=== PATIENT | male | born 1985 | race African-American/Black ===

== ENCOUNTER 2022-10-19 10:29 | Inpatient (IN) | payer OTHER ==
[~2022-10-19] VITALS: Ht 182.9 cm; Wt 108.0 kg
[2022-10-19] MEDS ORDERED: MIRT-149 PO (10:49)
[2022-10-19 11:21] LABS: BASOPHILS % (AUTO) 1.1 % (0.0-2.0); EOSINOPHILS % (AUTO) 5.6 % (1.0-6.0); HEMATOCRIT 43.6 % (36-46); LYMPHOCYTES # (AUTO) 1.5 K/uL (1.0-4.8); LYMPHOCYTES % (AUTO) 35.5 % (22.0-44.0); MEAN CORPUSCULAR HEMOGLOBIN 29.7 pg (26.0-34.0); MEAN CORPUSCULAR VOLUME 93 fL (80-100); MONOCYTES # (AUTO) 0.4 K/uL (0.1-1.0); MONOCYTES % (AUTO) 10.4 % (2.0-9.0); NEUTROPHILS % (AUTO) 47.4 % (40.0-70.0); PLATELET COUNT (AUTO) 194 K/uL (150-450); RED CELL DISTRIBUTION WIDTH 13.1 % (11.5-14.5)
[2022-10-19 11:28] LABS: ANION GAP 6 mmol/L (8-16); CARBON DIOXIDE 32 mmol/L (22-29); CHLORIDE 104 mmol/L (98-107); CREATININE 1.18 mg/dL (0.60-1.30); GLUCOSE,RANDOM 99 mg/dL (70-110); POTASSIUM 4.5 mmol/L (3.5-5.1); SODIUM SERUM 142 mmol/L (136-145); UREA NITROGEN, BLOOD 13 mg/dL (7-18)
[2022-10-19 11:29] LABS: GLOMERULAR FILTR. RATE CALC 51 mL/min (>60)
[2022-10-19 11:37] LABS: ALANINE AMINOTRANSFERASE 30 U/L (12-78); ALBUMIN 4.2 g/dL (3.4-5.0); ALKALINE PHOSPHATASE 76 U/L (46-116); ASPARTATE AMINOTRANSFERASE 20 U/L (15-37); BILIRUBIN,TOTAL 0.5 mg/dL (0.1-1.0); TOTAL PROTEIN, SERUM 8.3 g/dL (6.4-8.2)
[2022-10-19 12:47] LABS: AMPHET/METH SCREEN,URINE NEGATIVE (NEGATIVE); BARBITURATE SCREEN, URINE NEGATIVE (NEGATIVE); BENZODIAZEPINES SCREEN,URINE NEGATIVE (NEGATIVE); CANNABINOID SCREEN,URINE NEGATIVE (NEGATIVE); COCAINE SCREEN,URINE NEGATIVE (NEGATIVE); METHADONE SCREEN, URINE NEGATIVE (NEGATIVE); OPIATE SCREEN,URINE NEGATIVE (NEGATIVE)
[2022-10-19 12:51] LABS: PHENCYCLIDINE SCREEN,URINE NEGATIVE (NEGATIVE)
[2022-10-19] MEDS ORDERED: HALOPERIDOL 5 MG TABLET PO PRN (14:00)
[2022-10-19] MEDS ORDERED: LORazepam 2 MG TABLET PO PRN (14:00)
[2022-10-19] MEDS ORDERED: ZOLPIDEM TARTRATE 10 MG TABLET PO PRN (14:00)
[2022-10-19 14:59] LABS: COVID AG,FIA SOURCE NASAL SWAB
[2022-10-19] MEDS ORDERED: ONDANSETRON HCL 4 MG TABLET PO PRN (19:30)
[2022-10-19] MEDS ORDERED: CloNIDine HCL 0.1 MG TABLET PO PRN (19:30)
[2022-10-19] MEDS ORDERED: MAG HYDROX/AL HYDROX/SIMETH ES 30 ML SUSPENSION UDCUP PO PRN (19:30)
[2022-10-19] MEDS ORDERED: GuaiFENesin/D-METHORPHAN [SUGAR-FREE] 200-20MG/10 ML SYRUP UDCUP PO PRN (19:30)
[2022-10-19] MEDS ORDERED: IBUPROFEN 400 MG TABLET PO PRN (19:30)
[2022-10-19] MEDS ORDERED: ACETAMINOPHEN 325 MG TABLET PO PRN (19:30)
[2022-10-19] MEDS ORDERED: PETROLATUM,WHITE 28 GM JELLY TP PRN (19:30)
[2022-10-19] MEDS ORDERED: MAGNESIUM HYDROXIDE SUSPENSION 30 ML UDCUP PO PRN (19:30)
[2022-10-19] MEDS ORDERED: LOPERAMIDE HCL 2 MG CAPSULE PO PRN (19:30)
[2022-10-19] MEDS ORDERED: DOCUSATE SODIUM 100 MG CAPSULE PO PRN (19:30)
[2022-10-19] MEDS ORDERED: ALBUTEROL SULFATE HFA 90 MCG/PUFF 8 GM INHALER IH PRN (19:30)
[2022-10-19] MEDS ORDERED: NICOTINE 14 MG/24 HOUR PATCH TD PRN (19:30)
[2022-10-19 20:27] VITALS: BP 120/75
[2022-10-19] MEDS ORDERED: INFLUENZA VIRUS VACCINE QVS 2022-23 (6MO+)/PF 60 MCG/0.5 ML SYRINGE IM. ONE (22:30)
[2022-10-20 08:08] VITALS: BP 108/66
[2022-10-20 20:29] VITALS: BP 106/74
[2022-10-20] MEDS: MIRTAZAPINE 30 MG TABLET PO SCH (20:53)
[2022-10-21 08:17] VITALS: BP 114/68
[2022-10-21] MEDS: MIRTAZAPINE 30 MG TABLET PO SCH (20:58)
[2022-10-21 23:30] VITALS: BP 128/72
[2022-10-22 08:30] VITALS: BP 119/63
[2022-10-22] MEDS: MIRTAZAPINE 30 MG TABLET PO SCH (20:13)
[2022-10-22 20:15] VITALS: BP 101/75
[2022-10-23 08:12] VITALS: BP 119/71
[2022-10-23] MEDS: MIRTAZAPINE 30 MG TABLET PO SCH (20:03)
[2022-10-23 20:06] VITALS: BP 121/70
[2022-10-24 08:29] VITALS: BP 113/66
[2022-10-24 21:15] VITALS: BP 106/58
[2022-10-24] MEDS: MIRTAZAPINE 30 MG TABLET PO SCH (21:20)
[2022-10-25 08:27] LABS: GLUCOMETER DEV NAME(LOC) POC.BV
[2022-10-25 09:00] VITALS: BP 122/72
[2022-10-25 20:03] VITALS: BP 110/69
[2022-10-25] MEDS: MIRTAZAPINE 30 MG TABLET PO SCH (21:01)
[2022-10-26 09:12] VITALS: BP 121/73
[2022-10-26 20:00] VITALS: BP 113/69
[2022-10-26] MEDS: MIRTAZAPINE 30 MG TABLET PO SCH (20:39)
[2022-10-27 09:48] VITALS: BP 131/68
[2022-10-27] MEDS ORDERED: MIRT-149 PO (18:52)
[2022-10-27] MEDS: MIRTAZAPINE 30 MG TABLET PO SCH (20:47)
[2022-10-27 22:02] VITALS: BP 105/66
== END 2022-10-28 09:00 | disposition home or self-care (01) | DRG 885 ==
LOC: EMS 10:32 → EDSEX 10:32 → B2S 14:21 → UNDODISIN 10-22 11:45
PROVIDERS: ADMIT Psychiatry & Neurology Child & Adolescent Psychiatry; ATTEND Psychiatry & Neurology Child & Adolescent Psychiatry
DX: F33.2 Major depressive disorder, recurrent severe without psychotic features (principal); R45.851 Suicidal ideations; Z20.822 Contact with and (suspected) exposure to COVID-19; D72.819 Decreased white blood cell count, unspecified; F99 Mental disorder, not otherwise specified; F41.0 Panic disorder [episodic paroxysmal anxiety]; G47.00 Insomnia, unspecified; Z59.02 Unsheltered homelessness; Z91.51 Personal history of suicidal behavior
CPT/HCPCS: 80053; 80307; 85025; 99285; G0480